=== PATIENT | male | born 1945 | race Hispanic/Latino ===

== ENCOUNTER 2019-09-01 13:17 | Emergency (ER) | payer MEDICARE, OTHER ==
[~2019-09-01 13:17] MED LIST: Sodium Chloride 0.9% 1,000 ML BAG ONE
[2019-09-01 14:12] LABS: #Basophils 0.1 thou/uL (0.0-0.2); #Eosinphils 0.1 thou/uL (0.0-0.7); #Lymphocytes 1.3 thou/uL (1.20-3.40); #Monocytes 0.4 thou/uL (0.11-0.59); #Neutrophils 6.3 thou/uL (1.40-6.50); %Basophils 1.2 % (0.0-1.0); %Eosinophils 1.4 % (0.0-10.0); %Lymphocytes 15.5 % (21.0-51.0); %Monocytes 4.7 % (0.0-10.0); %Neutrophils 77.2 % (42.0-75.0); Hemoglobin 12.5 g/dL (14.0-18.0); Mean Corpuscular HGB CONC 33.1 g/dL (32.0-36.0); Mean Corpuscular Hemoglobin 31.8 pg (27.0-31.0); Mean Corpuscular Volume 96.3 fL (78.0-98.0); Mean Platelet Volume 7.2 fL (7.4-10.4); Platelet Count 225 thou/uL (130-400); Red Blood Cell (RBC) Count 3.93 mill/uL (4.70-6.10); White Blood Cell (WBC) Count 8.1 thou/uL (4.8-10.8)
--- NOTE | 2019-09-01 14:13 | RAD ---
EXAM: XR Abdomen 1 View/KUB PROVIDED CLINICAL HISTORY: Constipation COMPARISON: None FINDINGS: There is conspicuous colonic fecal retention, compatible with constipation. The supine nature the na dy is not sensitive for detection of pneumoperitoneum. The visualized lung bases are free of significant opacity. No definite radiographically apparent urinary tract calculi. The abdominal bowel gas pattern is overall nonspecific. IMPRESSION: Conspicuous colonic fecal retention.
[2019-09-01 14:15] LABS: Bilirubin Negative (Negative); Blood, Urine Trace (Negative); Clarity Clear (Clear); Glucose, Urine (Dipstick) >=1000 mg/dL (Negative); Leukocyte Negative (Negative); Nitrite Negative (Negative); Protein, Urine (Dipstick) 100 mg/dL (Neg-Trace); Urobilinogen 0.2 mg/dL (Less than 2)
[2019-09-01 14:21] LABS: Bacteria/HPF Rare-Few HPF (None Seen); RBC/HPF 0-3 HPF (0-3); Squamous Epithelial 0-3 HPF (0-3); WBC/HPF 0-3 HPF (0-3)
[2019-09-01 14:26] LABS: ALT (SGPT) 78 U/L (8-55); AST (SGOT) 65 U/L (5-34); Albumin 4.4 g/dL (3.4-4.8); Alkaline Phosphatase 67 U/L (40-110); Anion Gap 18 mmol/L (10-20); BUN (Urea Nitrogen) 14 mg/dL (8.4-25.7); Bilirubin, Total 0.4 mg/dL (0.2-1.2); Calc. Creatinine Clearance 0 mL/min (70-130); Calcium 9.2 mg/dL (7.8-10.44); Carbon Dioxide 22 mmol/L (23-31); Chloride 96 mmol/L (98-107); Estimated GFR-MDRD 38; Globulin 3.2 g/dL (2.4-3.5); Glucose 412 mg/dL (83-110); Potassium 3.9 mmol/L (3.5-5.1); Protein, Total 7.6 g/dL (5.8-8.1); Sodium 132 mmol/L (136-145)
[2019-09-01] MEDS ORDERED: diphenhydrAMINE 50 MG/ML VIAL ONE (14:54)
[2019-09-01] MEDS ORDERED: Glycerin Adult Supp. (12 ct jar) ONE (15:09)
[2019-09-01] MEDS ORDERED: Insulin Regular 300 UNITS/3 ML VIAL ONE (15:12)
[2019-09-01] MEDS ORDERED: Levothyroxine Sodium 25 MCG TAB PO SCH (15:15)
[2019-09-01] MEDS ORDERED: Mineral Oil ENEMA ONE (15:22)
[2019-09-01] MEDS ORDERED: Bisacodyl 10 MG SUPP ONE (16:28)
== END 2019-09-01 18:50 | disposition home or self-care (01) ==
LOC: MADERS 13:17
DX: K59.00 Constipation, unspecified (principal); E03.9 Hypothyroidism, unspecified; E11.65 Type 2 diabetes mellitus with hyperglycemia
CPT/HCPCS: 36415; 36416; 74018; 80053; 81003; 81015; 84443; 85025; 96360; J1200; J1815; J7050